=== PATIENT | female | born 1985 | race Caucasian/White ===

== ENCOUNTER 2020-12-07 10:07 | Inpatient (IN) | payer OTHER ==
[2020-12-07 10:15] VITALS: BMI 26.6
[2020-12-07] MEDS ORDERED: DEXAMETHASONE SOD PHOSPHATE 4 MG/1 ML VIAL IVPUSH ONE (10:52)
[2020-12-07] MEDS ORDERED: DEXAMETHASONE SOD PHOSPHATE 4 MG/1 ML VIAL ONE (10:53)
[2020-12-07] MEDS ORDERED: AZITHROMYCIN IVPB 500 MG/250 ML BAG IVPB ONE (10:54)
[2020-12-07 11:40] LABS: BASO % 0.2 % (0-2.0); HEMATOCRIT 34.9 % (32.4-45.2); HEMOGLOBIN 11.8 GM/dL (10.7-15.3); MCH 29.1 pg (25.7-33.7); MCHC 33.9 g/dl (32.0-36.0); MEAN CELL VOLUME 85.9 fl (80-96); MEAN PLT VOLUME 8.4 fl (7.5-11.1); MONO % 2.7 % (3.8-10.2); NEUT % 75.1 % (42.8-82.8); PLATELET COUNT 136 K/MM3 (134-434); RBC 4.06 M/mm3 (3.60-5.2); RDW 12.4 % (11.6-15.6); VENOUS BASE EXCESS -1.6 mmol/L (-2-2); VENOUS PCO2 32.4 mmHg (38-52); VENOUS PH 7.444 (7.310-7.410); WHITE BLOOD COUNT 3.2 K/mm3 (4.0-10.0)
[2020-12-07 11:46] LABS: INR 1.1 (0.83-1.09); PROTHROMBIN TIME (PATIENT) 13.3 SEC (9.7-13.0)
[2020-12-07 11:49] LABS: ACTIVATED PTT 37.9 SECONDS (25.2-36.5)
[2020-12-07 11:58] LABS: CHLORIDE 101 mmol/L (98-107); SODIUM 136 mmol/L (136-145)
[2020-12-07 12:00] LABS: CALCIUM 7.7 mg/dL (8.5-10.1)
[2020-12-07 12:01] LABS: ANION GAP 10 MMOL/L (8-16); BLOOD UREA NITROGEN 6.7 mg/dL (7-18); CO2 25 mmol/L (21-32); GLUCOSE,RANDOM 91 mg/dL (74-106)
[2020-12-07 12:03] LABS: BILIRUBIN,DIRECT 0.1 mg/dL (0.0-0.2)
[2020-12-07 12:04] LABS: CREATININE 0.6 mg/dL (0.55-1.3); SGOT/AST 250 U/L (15-37); SGPT/ALT 199 U/L (13-61)
[2020-12-07 12:05] LABS: BILIRUBIN,TOTAL 0.3 mg/dL (0.2-1); LDH 702 U/L (84-246)
[2020-12-07 12:06] LABS: TOT PROT 5.9 g/dl (6.4-8.2)
[2020-12-07 12:07] LABS: ALK PHOS 56 U/L (45-117)
[2020-12-07] MEDS ORDERED: POTASSIUM CHLORIDE TABS 20 MEQ TABLET.ER (FP) PO ONE ×2 (12:12)
[2020-12-07] MEDS ORDERED: POTASSIUM CHLORIDE TABS 10 MEQ TABLET.ER (FP) ONE ×2 (12:26→12:27)
[2020-12-07] MEDS ORDERED: LACTATED RINGERS SOLUTION 1000 ML INFUS.BAG IV ONE (13:24)
[2020-12-07] MEDS: ENOXAPARIN NA (PORCINE) 80 MG/0.8 ML DISP.SYRIN SQ SCH (21:37)
[2020-12-07] MEDS: guaiFENesin 200 MG/10 ML 10 ML UNIT-DOSE CUPS PO PRN (21:37)
[2020-12-08 06:39] LABS: BASO % 0.2 % (0-2.0); HEMOGLOBIN 12.3 GM/dL (10.7-15.3); LYMPH % 32.2 % (8-40); MCH 29.8 pg (25.7-33.7); MEAN CELL VOLUME 85.1 fl (80-96); MEAN PLT VOLUME 7.8 fl (7.5-11.1); MONO % 8.7 % (3.8-10.2); NEUT % 58.9 % (42.8-82.8); PLATELET COUNT 170 K/MM3 (134-434); RBC 4.11 M/mm3 (3.60-5.2); RDW 12.7 % (11.6-15.6); WHITE BLOOD COUNT 4.3 K/mm3 (4.0-10.0)
[2020-12-08 07:20] LABS: ALBUMIN 2.8 g/dl (3.4-5.0); BLOOD UREA NITROGEN 7.5 mg/dL (7-18); CALCIUM 7.9 mg/dL (8.5-10.1)
[2020-12-08 07:21] LABS: MAGNESIUM 1.5 mg/dL (1.8-2.4)
[2020-12-08 07:24] LABS: CREATININE 0.6 mg/dL (0.55-1.3); PHOSPHOROUS 2.9 mg/dL (2.5-4.9)
[2020-12-08 07:25] LABS: BILIRUBIN,TOTAL 0.3 mg/dL (0.2-1); TOT PROT 5.8 g/dl (6.4-8.2)
[2020-12-08] MEDS: guaiFENesin 200 MG/10 ML 10 ML UNIT-DOSE CUPS PO PRN ×3 (07:57→20:18)
[2020-12-08] MEDS ORDERED: POTASSIUM CHLORIDE TABS 20 MEQ TABLET.ER (FP) PO ONE (08:16)
[2020-12-08] MEDS: ZINC SULFATE 220 MG CAPSULE (FP) PO SCH (09:44)
[2020-12-08] MEDS: ASCORBIC ACID 500 MG TABLET (FP) PO SCH (09:44)
[2020-12-08] MEDS: ENOXAPARIN NA (PORCINE) 80 MG/0.8 ML DISP.SYRIN SQ SCH ×2 (09:44→22:08)
[2020-12-08] MEDS ORDERED: FAMOTIDINE 20 MG TABLET PO SCH (10:00)
[2020-12-08] MEDS ORDERED: DEXAMETHASONE 4 MG TABLET (FP) PO SCH (10:00)
[2020-12-08] MEDS: SODIUM CHLORIDE 1,000 ML IV SCH (14:00)
[2020-12-08] MEDS: VANCOMYCIN/WATER BAGS 1,250 MG/250 ML BAG IVPB SCH (14:00)
[2020-12-08] MEDS ORDERED: REMDESIVIR 200 MG in SODIUM CHLORIDE 210 ML IVPB ONE (15:51)
[2020-12-08] MEDS ORDERED: FLU VACCINE (FLULAVAL) PF 60 MCG/0.5 ML SYRINGE 2020-2021 IM ONE (16:09)
[2020-12-08] MEDS ORDERED: PT OWN MED DRAWER 7, Y5N ONE (17:12)
[2020-12-08] MEDS ORDERED: ACETAMINOPHEN 325 MG TABLET (FP) PO PRN (17:58)
[2020-12-08] MEDS ORDERED: IBUPROFEN 400 MG TABLET (FP) PO ONE (20:08)
[2020-12-08] MEDS: FAMOTIDINE 20 MG TABLET PO SCH (22:08)
[2020-12-09] MEDS ORDERED: PT OWN MED DRAWER 7, Y5N ONE ×2 (00:50→13:31)
[2020-12-09] MEDS: VANCOMYCIN/WATER BAGS 1,250 MG/250 ML BAG IVPB SCH (00:52)
[2020-12-09] MEDS: guaiFENesin 200 MG/10 ML 10 ML UNIT-DOSE CUPS PO PRN ×2 (04:42→07:49)
[2020-12-09 08:06] LABS: BASO % 0.3 % (0-2.0); HEMATOCRIT 36.1 % (32.4-45.2); HEMOGLOBIN 12.3 GM/dL (10.7-15.3); MCH 29.3 pg (25.7-33.7); MCHC 33.9 g/dl (32.0-36.0); MEAN CELL VOLUME 86.3 fl (80-96); MEAN PLT VOLUME 8.2 fl (7.5-11.1); MONO % 12.9 % (3.8-10.2); NEUT % 63.8 % (42.8-82.8); PLATELET COUNT 222 K/MM3 (134-434); RBC 4.19 M/mm3 (3.60-5.2); RDW 12.7 % (11.6-15.6); WHITE BLOOD COUNT 4.6 K/mm3 (4.0-10.0)
[2020-12-09 08:40] LABS: ALBUMIN 2.8 g/dl (3.4-5.0)
[2020-12-09 08:41] LABS: BLOOD UREA NITROGEN 10.2 mg/dL (7-18)
[2020-12-09 08:44] LABS: CALCIUM 8.1 mg/dL (8.5-10.1); CREATININE 0.5 mg/dL (0.55-1.3)
[2020-12-09 08:45] LABS: TOT PROT 5.9 g/dl (6.4-8.2)
[2020-12-09] MEDS: DEXAMETHASONE SOD PHOSPHATE 4 MG/1 ML VIAL IVPUSH SCH (09:16)
[2020-12-09] MEDS: FAMOTIDINE 20 MG TABLET PO SCH ×2 (09:16→21:30)
[2020-12-09] MEDS: ZINC SULFATE 220 MG CAPSULE (FP) PO SCH (09:16)
[2020-12-09] MEDS: ASCORBIC ACID 500 MG TABLET (FP) PO SCH (09:16)
[2020-12-09] MEDS: ENOXAPARIN NA (PORCINE) 80 MG/0.8 ML DISP.SYRIN SQ SCH ×2 (09:17→21:30)
[2020-12-09] MEDS: SODIUM CHLORIDE 1,000 ML IV SCH ×3 (11:12→21:30)
[2020-12-09] MEDS: guaiFENesin/CODEINE 10 ML UNIT-DOSE CUPS PO PRN ×2 (12:17→21:31)
[2020-12-09] MEDS: BUDESONIDE/FORMETEROL FUMARATE 160/4.5 mcg INHALER IH SCH ×2 (14:11→21:30)
[2020-12-09] MEDS: REMDESIVIR 100 MG in SODIUM CHLORIDE 230 ML IVPB SCH (15:54)
[2020-12-10] MEDS: SODIUM CHLORIDE 1,000 ML IV SCH ×2 (06:02→12:34)
[2020-12-10 08:05] LABS: BASO % 0.1 % (0-2.0); HEMATOCRIT 32.1 % (32.4-45.2); HEMOGLOBIN 11.1 GM/dL (10.7-15.3); LYMPH % 25.4 % (8-40); MCH 29.9 pg (25.7-33.7); MCHC 34.6 g/dl (32.0-36.0); MEAN CELL VOLUME 86.6 fl (80-96); MEAN PLT VOLUME 7.8 fl (7.5-11.1); MONO % 13.6 % (3.8-10.2); NEUT % 60.9 % (42.8-82.8); PLATELET COUNT 238 K/MM3 (134-434); RBC 3.71 M/mm3 (3.60-5.2); RDW 12.6 % (11.6-15.6); WHITE BLOOD COUNT 4.3 K/mm3 (4.0-10.0)
[2020-12-10 08:08] LABS: ALBUMIN 2.5 g/dl (3.4-5.0); BLOOD UREA NITROGEN 10.2 mg/dL (7-18); CALCIUM 7.8 mg/dL (8.5-10.1)
[2020-12-10 08:11] LABS: CREATININE 0.5 mg/dL (0.55-1.3)
[2020-12-10 08:13] LABS: BILIRUBIN,TOTAL 0.6 mg/dL (0.2-1); TOT PROT 5.3 g/dl (6.4-8.2)
[2020-12-10] MEDS ORDERED: PT OWN MED DRAWER 7, Y5N ONE (08:41)
[2020-12-10] MEDS: guaiFENesin/CODEINE 10 ML UNIT-DOSE CUPS PO PRN ×2 (08:49→21:42)
[2020-12-10] MEDS: FAMOTIDINE 20 MG TABLET PO SCH ×2 (09:03→21:42)
[2020-12-10] MEDS: ZINC SULFATE 220 MG CAPSULE (FP) PO SCH (09:03)
[2020-12-10] MEDS: DEXAMETHASONE SOD PHOSPHATE 4 MG/1 ML VIAL IVPUSH SCH (09:03)
[2020-12-10] MEDS: ASCORBIC ACID 500 MG TABLET (FP) PO SCH (09:03)
[2020-12-10] MEDS: ENOXAPARIN NA (PORCINE) 80 MG/0.8 ML DISP.SYRIN SQ SCH ×2 (09:04→21:43)
[2020-12-10] MEDS: BUDESONIDE/FORMETEROL FUMARATE 160/4.5 mcg INHALER IH SCH ×2 (10:11→21:43)
[2020-12-10] MEDS: REMDESIVIR 100 MG in SODIUM CHLORIDE 230 ML IVPB SCH (11:01)
[2020-12-11] MEDS: guaiFENesin/CODEINE 10 ML UNIT-DOSE CUPS PO PRN (06:23)
[2020-12-11 07:56] LABS: BASO % 0.2 % (0-2.0); HEMATOCRIT 34.2 % (32.4-45.2); HEMOGLOBIN 11.8 GM/dL (10.7-15.3); LYMPH % 27.2 % (8-40); MCH 29.9 pg (25.7-33.7); MCHC 34.6 g/dl (32.0-36.0); MEAN CELL VOLUME 86.5 fl (80-96); MEAN PLT VOLUME 7.6 fl (7.5-11.1); MONO % 8.9 % (3.8-10.2); NEUT % 63.7 % (42.8-82.8); PLATELET COUNT 315 K/MM3 (134-434); RBC 3.95 M/mm3 (3.60-5.2); RDW 12.5 % (11.6-15.6); WHITE BLOOD COUNT 5.1 K/mm3 (4.0-10.0)
[2020-12-11 08:33] LABS: ALBUMIN 2.8 g/dl (3.4-5.0); BILIRUBIN,TOTAL 0.4 mg/dL (0.2-1); BLOOD UREA NITROGEN 10.5 mg/dL (7-18); CALCIUM 7.9 mg/dL (8.5-10.1); CREATININE 0.7 mg/dL (0.55-1.3); MAGNESIUM 2.2 mg/dL (1.8-2.4); TOT PROT 5.9 g/dl (6.4-8.2)
[2020-12-11] MEDS: DEXAMETHASONE SOD PHOSPHATE 4 MG/1 ML VIAL IVPUSH SCH (09:22)
[2020-12-11] MEDS: ASCORBIC ACID 500 MG TABLET (FP) PO SCH (09:22)
[2020-12-11] MEDS: FAMOTIDINE 20 MG TABLET PO SCH ×2 (09:22→21:24)
[2020-12-11] MEDS: ZINC SULFATE 220 MG CAPSULE (FP) PO SCH (09:22)
[2020-12-11] MEDS: guaiFENesin 200 MG/10 ML 10 ML UNIT-DOSE CUPS PO PRN (09:23)
[2020-12-11] MEDS: ENOXAPARIN NA (PORCINE) 80 MG/0.8 ML DISP.SYRIN SQ SCH ×2 (09:23→21:24)
[2020-12-11] MEDS: BUDESONIDE/FORMETEROL FUMARATE 160/4.5 mcg INHALER IH SCH ×2 (09:23→21:24)
[2020-12-11] MEDS ORDERED: POTASSIUM CHLORIDE TABS 20 MEQ TABLET.ER (FP) PO ONE (09:49)
[2020-12-11] MEDS ORDERED: PT OWN MED DRAWER 7, Y5N ONE (11:36)
[2020-12-11 13:12] LABS: ANISOCYTOSIS 0; MACROCYTOSIS 0; OVALOCYTE 1+; PLATELET ESTIMATE NORMAL
[2020-12-12] MEDS: guaiFENesin 200 MG/10 ML 10 ML UNIT-DOSE CUPS PO PRN ×2 (01:17→21:16)
[2020-12-12 06:39] LABS: BASO % 0.1 % (0-2.0); HEMATOCRIT 33.6 % (32.4-45.2); HEMOGLOBIN 11.7 GM/dL (10.7-15.3); LYMPH % 19.2 % (8-40); MCH 29.7 pg (25.7-33.7); MCHC 34.8 g/dl (32.0-36.0); MEAN CELL VOLUME 85.4 fl (80-96); MEAN PLT VOLUME 7.8 fl (7.5-11.1); NEUT % 73.7 % (42.8-82.8); PLATELET COUNT 361 K/MM3 (134-434); RBC 3.94 M/mm3 (3.60-5.2); RDW 12.2 % (11.6-15.6); WHITE BLOOD COUNT 6.2 K/mm3 (4.0-10.0)
[2020-12-12 07:25] LABS: ALBUMIN 2.6 g/dl (3.4-5.0); BLOOD UREA NITROGEN 8.7 mg/dL (7-18); CALCIUM 8.1 mg/dL (8.5-10.1); MAGNESIUM 2.3 mg/dL (1.8-2.4)
[2020-12-12 07:28] LABS: CREATININE 0.5 mg/dL (0.55-1.3)
[2020-12-12 07:30] LABS: BILIRUBIN,TOTAL 0.5 mg/dL (0.2-1); TOT PROT 5.6 g/dl (6.4-8.2)
[2020-12-12] MEDS ORDERED: POTASSIUM CHLORIDE TABS 20 MEQ TABLET.ER (FP) PO ONE (10:11)
[2020-12-12 12:19] LABS: ANISOCYTOSIS 0; MACROCYTOSIS 0; PLATELET ESTIMATE NORMAL
[2020-12-12] MEDS: DEXAMETHASONE SOD PHOSPHATE 4 MG/1 ML VIAL IVPUSH SCH (12:54)
[2020-12-12] MEDS: ZINC SULFATE 220 MG CAPSULE (FP) PO SCH (12:55)
[2020-12-12] MEDS: ENOXAPARIN NA (PORCINE) 80 MG/0.8 ML DISP.SYRIN SQ SCH ×2 (12:55→21:15)
[2020-12-12] MEDS: ASCORBIC ACID 500 MG TABLET (FP) PO SCH (12:55)
[2020-12-12] MEDS: guaiFENesin/CODEINE 10 ML UNIT-DOSE CUPS PO PRN ×2 (12:55→21:16)
[2020-12-12] MEDS: FAMOTIDINE 20 MG TABLET PO SCH ×2 (12:55→21:15)
[2020-12-12] MEDS: BUDESONIDE/FORMETEROL FUMARATE 160/4.5 mcg INHALER IH SCH ×2 (13:07→21:16)
[2020-12-12 14:11] LABS: HEP B CORE AB, TOT Negative (Negative)
[2020-12-13 07:24] LABS: BASO % 0.1 % (0-2.0); EOS % 0.9 % (0-4.5); HEMATOCRIT 35.6 % (32.4-45.2); HEMOGLOBIN 12.6 GM/dL (10.7-15.3); LYMPH % 18.8 % (8-40); MCHC 35.4 g/dl (32.0-36.0); MEAN CELL VOLUME 84.9 fl (80-96); MEAN PLT VOLUME 7.4 fl (7.5-11.1); MONO % 9.3 % (3.8-10.2); NEUT % 70.9 % (42.8-82.8); PLATELET COUNT 445 K/MM3 (134-434); RBC 4.19 M/mm3 (3.60-5.2); RDW 12.4 % (11.6-15.6); WHITE BLOOD COUNT 5.1 K/mm3 (4.0-10.0)
[2020-12-13 07:56] LABS: ALBUMIN 2.7 g/dl (3.4-5.0); BLOOD UREA NITROGEN 9.3 mg/dL (7-18); CALCIUM 8.5 mg/dL (8.5-10.1); MAGNESIUM 2.7 mg/dL (1.8-2.4)
[2020-12-13 07:59] LABS: CREATININE 0.5 mg/dL (0.55-1.3)
[2020-12-13 08:00] LABS: BILIRUBIN,TOTAL 0.5 mg/dL (0.2-1); TOT PROT 6.3 g/dl (6.4-8.2)
[2020-12-13 10:20] LABS: PLATELET ESTIMATE INCREASED
[2020-12-13] MEDS: ENOXAPARIN NA (PORCINE) 80 MG/0.8 ML DISP.SYRIN SQ SCH ×2 (10:48→21:40)
[2020-12-13] MEDS: ASCORBIC ACID 500 MG TABLET (FP) PO SCH (10:48)
[2020-12-13] MEDS: ZINC SULFATE 220 MG CAPSULE (FP) PO SCH (10:48)
[2020-12-13] MEDS: DEXAMETHASONE SOD PHOSPHATE 4 MG/1 ML VIAL IVPUSH SCH (10:48)
[2020-12-13] MEDS: FAMOTIDINE 20 MG TABLET PO SCH ×2 (10:48→21:40)
[2020-12-13] MEDS: BUDESONIDE/FORMETEROL FUMARATE 160/4.5 mcg INHALER IH SCH ×2 (10:49→21:41)
[2020-12-13] MEDS: guaiFENesin/CODEINE 10 ML UNIT-DOSE CUPS PO PRN (21:41)
[2020-12-14 07:38] LABS: BASO % 0.5 % (0-2.0); EOS % 2.1 % (0-4.5); HEMATOCRIT 34.2 % (32.4-45.2); LYMPH % 17.9 % (8-40); MEAN CELL VOLUME 85.7 fl (80-96); MEAN PLT VOLUME 7.7 fl (7.5-11.1); NEUT % 68.5 % (42.8-82.8); PLATELET COUNT 532 K/MM3 (134-434); RBC 3.99 M/mm3 (3.60-5.2); RDW 12.5 % (11.6-15.6); WHITE BLOOD COUNT 6.2 K/mm3 (4.0-10.0)
[2020-12-14 08:06] LABS: ALBUMIN 2.6 g/dl (3.4-5.0); BLOOD UREA NITROGEN 10.1 mg/dL (7-18); CALCIUM 8.6 mg/dL (8.5-10.1)
[2020-12-14 08:07] LABS: MAGNESIUM 2.6 mg/dL (1.8-2.4)
[2020-12-14 08:10] LABS: CREATININE 0.4 mg/dL (0.55-1.3)
[2020-12-14 08:11] LABS: BILIRUBIN,TOTAL 0.5 mg/dL (0.2-1)
[2020-12-14] MEDS: ENOXAPARIN NA (PORCINE) 80 MG/0.8 ML DISP.SYRIN SQ SCH ×2 (09:50→21:25)
[2020-12-14] MEDS: FAMOTIDINE 20 MG TABLET PO SCH ×2 (09:51→21:26)
[2020-12-14] MEDS: ZINC SULFATE 220 MG CAPSULE (FP) PO SCH (09:51)
[2020-12-14] MEDS: DEXAMETHASONE SOD PHOSPHATE 4 MG/1 ML VIAL IVPUSH SCH (09:51)
[2020-12-14] MEDS: BUDESONIDE/FORMETEROL FUMARATE 160/4.5 mcg INHALER IH SCH ×2 (09:51→21:26)
[2020-12-14] MEDS: ASCORBIC ACID 500 MG TABLET (FP) PO SCH (09:51)
[2020-12-15 07:18] LABS: BASO % 0.7 % (0-2.0); EOS % 1.4 % (0-4.5); HEMATOCRIT 34.3 % (32.4-45.2); HEMOGLOBIN 11.8 GM/dL (10.7-15.3); MCH 29.5 pg (25.7-33.7); MCHC 34.3 g/dl (32.0-36.0); MEAN PLT VOLUME 7.6 fl (7.5-11.1); MONO % 12.2 % (3.8-10.2); NEUT % 60.7 % (42.8-82.8); PLATELET COUNT 601 K/MM3 (134-434); RBC 3.99 M/mm3 (3.60-5.2); RDW 12.5 % (11.6-15.6); WHITE BLOOD COUNT 5.3 K/mm3 (4.0-10.0)
[2020-12-15 07:44] LABS: CALCIUM 8.4 mg/dL (8.5-10.1)
[2020-12-15 07:45] LABS: ALBUMIN 2.5 g/dl (3.4-5.0); BLOOD UREA NITROGEN 10.6 mg/dL (7-18)
[2020-12-15 07:46] LABS: MAGNESIUM 2.3 mg/dL (1.8-2.4)
[2020-12-15 07:49] LABS: CREATININE 0.5 mg/dL (0.55-1.3)
[2020-12-15 07:50] LABS: BILIRUBIN,TOTAL 0.2 mg/dL (0.2-1); TOT PROT 5.9 g/dl (6.4-8.2)
[2020-12-15] MEDS: DEXAMETHASONE 4 MG TABLET (FP) PO SCH (09:25)
[2020-12-15] MEDS: ASCORBIC ACID 500 MG TABLET (FP) PO SCH (09:25)
[2020-12-15] MEDS: FAMOTIDINE 20 MG TABLET PO SCH ×2 (09:25→21:21)
[2020-12-15] MEDS: ZINC SULFATE 220 MG CAPSULE (FP) PO SCH (09:25)
[2020-12-15] MEDS: APIXABAN 5 MG TABLET PO SCH ×2 (09:25→21:21)
[2020-12-15] MEDS: BUDESONIDE/FORMETEROL FUMARATE 160/4.5 mcg INHALER IH SCH ×2 (09:26→21:30)
[2020-12-15] MEDS: guaiFENesin 200 MG/10 ML 10 ML UNIT-DOSE CUPS PO PRN (21:21)
[2020-12-16 08:12] LABS: BASO % 0.7 % (0-2.0); EOS % 0.2 % (0-4.5); HEMATOCRIT 37.6 % (32.4-45.2); HEMOGLOBIN 13.1 GM/dL (10.7-15.3); LYMPH % 28.5 % (8-40); MCHC 34.8 g/dl (32.0-36.0); MEAN CELL VOLUME 86.3 fl (80-96); MEAN PLT VOLUME 7.5 fl (7.5-11.1); MONO % 11.5 % (3.8-10.2); NEUT % 59.1 % (42.8-82.8); PLATELET COUNT 743 K/MM3 (134-434); RBC 4.35 M/mm3 (3.60-5.2); RDW 12.4 % (11.6-15.6); WHITE BLOOD COUNT 6.4 K/mm3 (4.0-10.0)
[2020-12-16 09:32] LABS: MAGNESIUM 2.4 mg/dL (1.8-2.4)
[2020-12-16 09:37] LABS: ALBUMIN 2.8 g/dl (3.4-5.0); BILIRUBIN,TOTAL 0.3 mg/dL (0.2-1); BLOOD UREA NITROGEN 12.9 mg/dL (7-18); CREATININE 0.6 mg/dL (0.55-1.3); TOT PROT 6.6 g/dl (6.4-8.2)
[2020-12-16] MEDS: ZINC SULFATE 220 MG CAPSULE (FP) PO SCH (09:38)
[2020-12-16] MEDS: APIXABAN 5 MG TABLET PO SCH (09:38)
[2020-12-16] MEDS: DEXAMETHASONE 4 MG TABLET (FP) PO SCH (09:38)
[2020-12-16] MEDS: ASCORBIC ACID 500 MG TABLET (FP) PO SCH (09:38)
[2020-12-16] MEDS: BUDESONIDE/FORMETEROL FUMARATE 160/4.5 mcg INHALER IH SCH (09:38)
[2020-12-16] MEDS: FAMOTIDINE 20 MG TABLET PO SCH (09:38)
[2020-12-16] MEDS: guaiFENesin 200 MG/10 ML 10 ML UNIT-DOSE CUPS PO PRN (09:38)
[2020-12-16 11:51] VITALS: BP 114/50; PULSE 72; TEMP 98
== END 2020-12-16 13:46 | disposition home or self-care (01) | DRG 177 ==
LOC: JER 10:07 → JERBED 12:43 → J4S 19:52
PROVIDERS: ADMIT Internal Medicine; ATTEND Nurse Practitioner Acute Care
PROC: XW033E5 Introduction of Remdesivir Anti-infective into Peripheral Vein, Percutaneous Approach, New Technology Group 5 (ICD-10-PCS; principal; 2020-12-07)
DX: U07.1 COVID-19 (principal); J96.01 Acute respiratory failure with hypoxia; J12.82 Pneumonia due to coronavirus disease 2019; R78.81 Bacteremia; R74.8 Abnormal levels of other serum enzymes; E87.6 Hypokalemia; E83.51 Hypocalcemia; R00.0 Tachycardia, unspecified
CPT/HCPCS: 36415; 71045-TC-FY; 76705-TC; 80053; 82248; 82550; 82553; 82728; 82803; 83605; 83615; 83735; 84100; 84443; 84484; 85025; 85379; 85610; 85730; 86140; 86704; 86706; 86707; 86708; 86709; 86769; 86850; 86900; 86901; 87040; 87186; 87340; 87804; 93005; 93010; 94010; 99285-25; C9399; C9803; G0008; Q2036; U0003; U0005